=== PATIENT | female | born 1945 | race Caucasian/White ===

== ENCOUNTER → 2017-09-29 | Outpatient (CLI) | payer OTHER | LOC: GIMAGING 14:35 | PROVIDERS: ATTEND Internal Medicine | DX: R91.1 Solitary pulmonary nodule (principal); R05 Cough; R53.83 Other fatigue; R06.00 Dyspnea, unspecified | CPT/HCPCS: 71046-PO ==

== ENCOUNTER → 2017-10-02 | Outpatient (CLI) | payer OTHER | LOC: CIMAGING 10:05 | PROVIDERS: ATTEND Internal Medicine | DX: R91.1 Solitary pulmonary nodule (principal); R05 Cough; R06.09 Other forms of dyspnea; R53.83 Other fatigue | CPT/HCPCS: 71250-PO ==

== ENCOUNTER → 2017-10-20 | Outpatient (CLI) | payer OTHER | LOC: BHLMT 10:00 | PROVIDERS: ATTEND Internal Medicine Cardiovascular Disease | DX: R01.1 Cardiac murmur, unspecified (principal) | CPT/HCPCS: 93306-PO ==

== ENCOUNTER → 2018-06-29 | Outpatient (CLI) | payer OTHER | LOC: BHFA 13:30 | PROVIDERS: ATTEND Internal Medicine Cardiovascular Disease | DX: Z01.810 Encounter for preprocedural cardiovascular examination (principal); R94.31 Abnormal electrocardiogram [ECG] [EKG] | CPT/HCPCS: 78452; 93017; A9500; J2785 ==

== ENCOUNTER → 2018-06-30 | Outpatient (CLI) | payer OTHER | LOC: FIMAGING 10:25 | PROVIDERS: ATTEND Orthopaedic Surgery | DX: Z01.818 Encounter for other preprocedural examination (principal); M17.11 Unilateral primary osteoarthritis, right knee ==

== ENCOUNTER → 2018-07-06 | Outpatient (CLI) | payer OTHER ==
[~2018-07-06] MED LIST: IOPAMIDOL (ISOVUE-370) 150 ML BTL IV ONE
== END ==
LOC: FIMAGING 07:24
PROVIDERS: ATTEND Internal Medicine Cardiovascular Disease
DX: I25.10 Atherosclerotic heart disease of native coronary artery without angina pectoris (principal); I51.7 Cardiomegaly
CPT/HCPCS: 75574; Q9967

== ENCOUNTER 2018-07-09 08:15 | Inpatient (IN) | payer OTHER ==
--- NOTE | 2018-07-09 07:23 | PDHPUP ---
History & Physical Update H&P update statement: This history and physical update is based on an assessment of the patient which was completed after admission or registration (within 24 hours), but prior to the surgery/procedure. H&P update: H&P reviewed & patient examined, no change in patient's condition since H&P completed
[~2018-07-09 08:15] MED LIST changes: -IOPAMIDOL (ISOVUE-370) 150 ML BTL IV ONE; +ROPIVACAINE 0.2% 80 MG, EPINEPHrine 0.2 MG, KETOROLAC TROMETHAMINE 30 MG in SYRINGE 0 ML IU ONE; +TRANEXAMIC ACID 3,000 MG in NS (SYRINGE) 50 ML IRR ONE; +TRANEXAMIC ACID 3,000 MG/50 ML BAG IRR ONE; +VANCOMYCIN 1 GM VIAL ONE
[2018-07-09] MEDS ORDERED: ACETAMINOPHEN 325 MG TAB PO ONE (12:19)
[2018-07-09] MEDS ORDERED: DEXAMETHASONE 4 MG/ML VIAL IVP ONE (12:19)
[2018-07-09] MEDS ORDERED: ceFAZolin 2 GM/DEXTROSE 100 ML IV ONE (12:19)
[2018-07-09] MEDS ORDERED: FAMOTIDINE 20 MG TAB PO ONE (12:19)
[2018-07-09] MEDS ORDERED: LR 1,000 ML IV ONE (12:21)
[2018-07-09] MEDS ORDERED: LIDOCAINE 1% 2 ML INJ ID PRN (12:21)
--- NOTE | 2018-07-09 13:53 | PDANEPAE ---
ANE History of Present Illness Right TKA ANE Past Medical History - Cardiovascular History Hx Hypertension: No Hx Arrhythmias: No Hx Chest Pain: No Hx Coronary Artery / Peripheral Vascular Disease: No Hx CHF / Valvular Disease: No Hx Palpitations: No Cardiovascular History Comment: ABN EKG. ASYMPTOMATIC - Pulmonary History Hx COPD: No Hx Asthma/Reactive Airway Disease: No Hx Recent Upper Respiratory Infection: No Hx Oxygen in Use at Home: No Hx Sleep Apnea: No Sleep Apnea Screening Result - Last Documented: Negative - Neurologic History Hx Cerebrovascular Accident: No Hx Seizures: No Hx Dementia: No - Endocrine History Hx Diabetes: No Endocrine History Comment: THYROID NODULE - Renal History Hx Renal Disorders: No Renal History Comment: UTI RECENTLY TXD & RESOLVED - Liver History Hx Hepatic Disorders: No - Neurological & Psychiatric Hx Hx Neurological and Psychiatric Disorders: No - Cancer History Hx Cancer: No - Congenital Disorder History Hx Congenital Disorders: No - GI History Hx Gastrointestinal Disorders: No Gastrointestinal History Comment: GERD. DIVERTICULITIS - Other Health History Other Health History: NEG - Chronic Pain History Chronic Pain: Yes (R KNEE) - Surgical History Prior Surgeries: LEG FX REPAIR L. FINGER TENDON R. COSMETIC SURGERY ANE Review of Systems Review of Systems: - Exercise capacity METS (RN): 4 METS ANE Patient History - Allergies Allergies/Adverse Reactions: No Known Allergies Allergy (Verified 06/24/18 08:54) - Home Medications Home medications: home medication list seen and reviewed Home Medications: Alendronate Sodium [Fosamax 70 MG (*)] 70 mg PO MO@0700 06/24/18 [Last Taken ] Aspirin [Aspirin 81mg (*)] 81 mg PO DAILY 06/24/18 [Last Taken 05/31/18] C/E/Zn/Cu/OM3/DHA/EPA/LUT/ZEAX [Preservision Areds 2 Softgel] 1 each PO BID [Last Taken Unknown] Calcium Carbonate [Oyster Shell Calcium 500 mg (*)] 250 mg PO DAILY 06/24/18 [ Last Taken 04/10/18] Herbals/Supplements -Info Only 1 ea PO DAILY 06/24/18 [Last Taken Unknown] Ibuprofen [Motrin (*)] 200 mg PO TID PRN 06/24/18 [Last Taken 06/29/18] [place]-3 Fatty Acids [Fish Oil 1000 mg (*)] 1,000 mg PO TID 06/24/18 [Last Taken 06/24/18] Zolpidem Tartrate [Ambien 5MG (*)] 5 mg PO HS 06/30/18 [Last Taken 07/08/18] - NPO status NPO Since - Liquids (Date): 07/08/18 NPO Since - Liquids (Time): 21:00 NPO Since - Solids (Date): 07/08/18 NPO Since - Solids (Time): 19:00 - Anes Hx Anes Hx: no prior problems - Smoking Hx Smoking Status: Former smoker - Family Anes Hx Family Hx Anesthesia Complications: NEG ANE Labs/Vital Signs - Vital Signs Blood Pressure: 109/66 Heart Rate: 70 Respiratory Rate: 20 O2 Sat (%): 95 Height: 160.02 cm Weight: 62.596 kg ANE Physical Exam - Airway Neck exam: FROM Mallampati Score: Class 2 Mouth exam: normal dental/mouth exam - Pulmonary Pulmonary: no respiratory distress - Cardiovascular Cardiovascular: regular rate and rhythym - ASA Status ASA Status: II ANE Anesthesia Plan Anesthesia Plan: spinal Regional Anesthesia: adductor canal FNB
[2018-07-09] MEDS ORDERED: MIDAZOLAM 2 MG/2 ML VIAL IVP ONE (13:57)
[2018-07-09] MEDS ORDERED: PROPOFOL/EMULSION 500 MG/50 ML BOTTLE IV ONE (14:13)
[2018-07-09] MEDS ORDERED: ROPIVACAINE HCL 150 MG/30 ML INJ ONE (14:17)
[2018-07-09] MEDS ORDERED: LIDOCAINE 2% 5 ML SDV ONE (14:17)
[2018-07-09] MEDS ORDERED: MAGNESIUM HYDROXIDE 30 ML UDCUP PO PRN (14:53)
[2018-07-09] MEDS ORDERED: ONDANSETRON DISINTEGRATING 4 MG TAB PO PRN (14:53)
[2018-07-09] MEDS ORDERED: PROMETHAZINE HCL 25 MG SUPPR PR PRN (14:53)
[2018-07-09] MEDS ORDERED: ONDANSETRON 4 MG/2 ML VIAL IVP PRN ×2 (14:53→14:57)
[2018-07-09] MEDS ORDERED: DIPHENOXYLATE/ATROPINE LOMOTIL 1 TAB PO PRN (14:53)
[2018-07-09] MEDS ORDERED: BISACODYL 10 MG SUPP PR PRN (14:53)
[2018-07-09] MEDS ORDERED: METOCLOPRAMIDE 10 MG/2 ML VIAL IVP PRN (14:53)
[2018-07-09] MEDS ORDERED: PROMETHAZINE HCL 25 MG/ML INJ IVP PRN (14:53)
[2018-07-09] MEDS ORDERED: LACTULOSE 20 GM/30 ML UDCUP PO PRN (14:53)
[2018-07-09] MEDS ORDERED: diphenhydrAMINE 25 MG CAP PO PRN (14:53)
[2018-07-09] MEDS ORDERED: oxyCODONE IR 5 MG TAB PO PRN (14:53)
[2018-07-09] MEDS ORDERED: TEMAZEPAM 15 MG CAP PO PRN (14:53)
[2018-07-09] MEDS ORDERED: POLYETHYLENE GLYCOL 3350 17 GM PKT PO PRN (14:53)
[2018-07-09] MEDS ORDERED: fentaNYL 100 MCG/2 ML INJ IVP PRN (14:57)
[2018-07-09] MEDS ORDERED: NALOXONE HCL 0.4 MG/ML INJ IVP PRN (14:57)
[2018-07-09] MEDS ORDERED: LR 1,000 ML IV SCH (15:00)
--- NOTE | 2018-07-09 15:07 | PDMN ---
Medical Necessity Medical necessity: Pt meets IP criteria as of 07/09/2018 per PA; est los > 2 mn for pain management, and close post op monitoring of BP s/p TKA
--- NOTE | 2018-07-09 15:47 | POSTOPPROG ---
Post Op Note Date of Operation: 07/09/18 Surgeon: Jessica Nur Power Lineman: carlota nur PA_C Anesthesiologist: dr. pérez Anesthesia: Spinal, Other (Specify) (adductor canal block) Pre-op Diagnosis: right knee OA Post-op Diagnosis: same Indication: r knee pain Procedure: R med MPL Findings: severe medial knee OA Inf/Abcess present in the surg proc area at time of surgery?: No EBL: 50-100
--- NOTE | 2018-07-09 15:49 | POSTANESTH ---
Post Anesthetic Evaluation Cardiovascular Status: Similar to Pre-Op Cond Respiratory Status: Similar to Pre-op Cond. Level of Consciousness/Mental Status: Alert and Oriented Pain Control: Adequate, Prn Tx Ordered Nausea/Vomiting Control: Adequate, Prn Tx Ordered Complications Possibly Related to Anesthesia: None Noted
[2018-07-09] MEDS ORDERED: fentaNYL 100 MCG/2 ML INJ ONE (17:29)
[2018-07-09] MEDS ORDERED: oxyCODONE IR 5 MG TAB ONE (17:29)
[2018-07-09] MEDS: ASPIRIN 81 MG CHEWABLE TAB PO SCH (21:37)
[2018-07-09] MEDS: ceFAZolin 2 GM/DEXTROSE 100 ML IV SCH (21:37)
[2018-07-09] MEDS: CYCLOBENZAPRINE 10 MG TAB PO PRN (21:37)
[2018-07-09] MEDS: FAMOTIDINE 20 MG TAB PO SCH (21:37)
[2018-07-09] MEDS: SENNOSIDES/DOCUSATE SODIUM TAB PO SCH (21:37)
[2018-07-10] MEDS: ACETAMINOPHEN 325 MG TAB PO SCH ×4 (00:33→11:47)
[2018-07-10] MEDS: CYCLOBENZAPRINE 10 MG TAB PO PRN (05:39)
[2018-07-10] MEDS: ceFAZolin 2 GM/DEXTROSE 100 ML IV SCH (05:40)
--- NOTE | 2018-07-10 06:18 | GOP ---
DATE OF OPERATION: 07/09/2018 SURGEON: Heidi Stover MD INSPECTOR DIALS: Marilu Stover PA-C. ANESTHESIA: Spinal. PREOPERATIVE DIAGNOSIS: Right knee osteoarthritis. POSTOPERATIVE DIAGNOSIS: Right knee osteoarthritis. PROCEDURE PERFORMED: Right medial compartment partial knee replacement using navigation, robotic ass ist. FINDINGS: ESTIMATED BLOOD LOSS: 30 cc. INDICATIONS: This is a 73-year-old female with progressive pain of the right knee unresponsive to co nservative care. Risks and benefits of surgical intervention were explained in detail. DESCRIPTION OF PROCEDURE: The patient was brought to the operating room and placed on the table in s upine position. Spinal anesthesia was induced without difficulty. A pneumatic tourniquet was applie d about the right proximal thigh and the leg was prepped and draped in sterile fashion. Attention wa s turned first to the distal aspect of the right femur. At 3 cm proximal to the lateral rise of the femur, 2 percutaneous half pins were placed for fixation of the femoral array. In a similar fashion, 2 pins were placed anterolateral on the tibia for fixation of the tibial array. External land buffy ng and registration of the hip center were performed without difficulty. After exsanguination by elevation, the tourniquet was inflated to 250 mmHg. Incision was made from the tibial tuberosity to the superior pole of the patella. Dissection was car ried out through the subcutaneous tissue to the deep fascia using Bovie electrocautery for hemostasis . Medial parapatellar arthrotomy was carried out to the superior pole of the patella. The medial co llateral ligament was elevated and the infrapatellar fat pad was resected. Internal femoral and tibi al registration was carried out without difficulty and the femoral and tibial checkpoints were placed and verified for accuracy. Attention was turned to the femur. The foot print for the size 3 femoral component was cut with the 6 mm bur using the [employer] robotic system and verified for accuracy against the CT based plan. The hole was cut for the femoral post. In a similar fashion, the 6 mm bur was used to cut the foot print for t he size 3 tibial component using the DOUG system and verified for accuracy against the CT based plan. Attention was turned to the posterior aspect of the knee and remnants of the medial meniscus were exc ised. The posterior capsule was injected with ropivacaine, epinephrine and Toradol. Trial reduction was carried out and there was excellent range of motion, alignment and stability using the size 3 fe moral component and the size 2 tibial component, 2 x 8 mm polyethylene. All trials were then removed. The joint was thoroughly irrigated and carefully dried. One package o f cement and 1 gram of vancomycin were mixed in the vacuum mixer and placed on the fixation surfaces of all components. The components were implanted and all excess cement was thoroughly removed. Impla nt placement was verified against the CT view plan and found to be excellent. The tourniquet was deflated and all bleeders were coagulated. The wound was thoroughly irrigated and closed using interrupted sutures of 2-0 Vicryl for the joint capsule. The subcu was closed with 3-0 Vicryl and the skin with 4-0 Monocryl. Dermabond and Steri-Strips were applied, followed by a compr essive dressing. The patient was then moved from the operating room to the recovery room in good con dition, having tolerated the procedure well. PATHOLOGY: Severe medial compartment osteoarthritis. CASE CLASSIFICATION: Clean. /[id number]/MODL
[2018-07-10 07:28] VITALS: BP 141/72
[2018-07-10] MEDS: FAMOTIDINE 20 MG TAB PO SCH (09:12)
[2018-07-10] MEDS: SENNOSIDES/DOCUSATE SODIUM TAB PO SCH (09:12)
[2018-07-10] MEDS: ASPIRIN 81 MG CHEWABLE TAB PO SCH (09:13)
--- NOTE | 2018-07-10 10:34 | SOAPPROG ---
SOAP Progress Note Assessment/Plan: Assessment: Patient is doing well POD 1 s/p R med MPL Pain management: pain is well controlled on oral pain meds. VTE ppx: recommend aspirin 81 mg BID for 4 weeks, cont PAMELA and SCDs D/c planning:patient has done much better than anticipated. Patient is stable, BP stable, pain well controlled and patient is eager for discharge to home. May d/c to home today pending release from PT Plan: 07/10/18 10:33 07/10/18 10:34 Subjective: Stephanie is doing well today, denies SOB ,chest pain and N/V Objective: Vital Signs Temp Pulse Resp BP Pulse Ox 36.4 C 62 16 141/72 H 97 07/10/18 07:27 07/10/18 07:27 07/10/18 07:27 07/10/18 07:27 07/10/18 07:27 Laboratory Results 07/10/18 04:35 07/10/18 04:35 07/09/18 07/10/18 07/11/18 05:59 05:59 05:59 Intake Total 4390 Output Total 1130 500 Balance 3260 -500 RLE: incision dressing is clean and dry, NVI, +pf/df ICD10 Worksheet Patient Problems: Problems Problem Status Onset Osteoarthritis of right knee Acute - ICD10 Problem Qualifiers (1) Osteoarthritis of right knee
== END 2018-07-10 13:39 | disposition home or self-care (01) | DRG 470 ==
LOC: F3N 11:55
PROVIDERS: ADMIT Orthopaedic Surgery; ATTEND Orthopaedic Surgery
DX: M17.11 Unilateral primary osteoarthritis, right knee (principal); K21.9 Gastro-esophageal reflux disease without esophagitis; K57.30 Diverticulosis of large intestine without perforation or abscess without bleeding
CPT/HCPCS: 97161-GP; C1713; G8978-GP-CI; G8979-GP-CI; G8980-GP-CI; J0171; J0690; J1100; J1885; J2250; J2704; J2795; J3010; J3370